=== PATIENT | male | born 1970 | race Caucasian/White ===

== ENCOUNTER 2018-05-30 14:44 | Emergency (ER) | payer OTHER, SELFPAY ==
[2018-05-30 14:48] VITALS: BP 155/81; PULSE 73; RESP 16; TEMP 36.6; O2SAT 98; BMI 29.9
--- NOTE | 2018-05-30 15:01 | ED.BACK ---
HPI - Back Pain/Injury <Macy Cui PA-C - Last Filed: 05/30/18 20:01> General Chief Complaint: Back Pain/Injury Stated Complaint: Kidney Stones Time Seen by Provider: 05/30/18 15:01 Source: patient Mode of arrival: ambulatory Limitations: no limitations History of Present Illness HPI Narrative: This 48-year-old male comes to the ED today due to right flank area pain which feels similar to his previous kidney stones. He states that he has had those a couple of times years ago. He states this pain came on yesterday morning, early. He describes it as episodic, yesterday more in the middle of his back radiating to the groin, today more in the right flank and can radiate around a bit to the abdomen. He was seen at an ED in [place] yesterday and states that ultrasound was done, no stone found lodged in the ureter and he felt better after Toradol also discharged, however pain became worse again this morning, waxing and waning, along with vomiting 3 or 4 times today. He states he really does not have significant nausea. He denies any abdominal pain elsewhere. He denies any fever or recent illness. He denies any urinary symptoms such as dysuria or hematuria. He is not having chest pain, dyspnea, or other new complaints on systems review. Related Data Previous Rx's Medication Instructions Recorded ondansetron [Zofran ODT] 4 mg PO Q6-8H PRN #7 tab 05/30/18 tamsulosin [Flomax] 0.4 mg PO .hs #5 cap 05/30/18 Allergies Allergy/AdvReac Type Severity Reaction Status Date / Time No Known Drug Allergies Allergy Verified 05/30/18 15:29 Review of Systems <Macy Cui PA-C - Last Filed: 05/30/18 20:01> Review of Systems All systems reviewed & are unremarkable except as noted in HPI and below Exam <Macy Cui PA-C - Last Filed: 05/30/18 20:01> Narrative Exam Narrative: GENERAL APPEARANCE: Patient appears mildly uncomfortable, seated, in no distress. HEENT: PERRL, EOMI, no scleral icterus NECK: Supple LUNGS: Clear to auscultation bilaterally. HEART: Rate and rhythm regular, normal S1 and S2, no S3 or S4. ABDOMEN: Soft, nondistended, bowel sounds present x 4 quadrants, no masses palpable, no hepatosplenomegaly. Moderate right flank tenderness, no tenderness elsewhere over the abdomen EXTREMITIES: No edema, no cyanosis DERMATOLOGIC: No jaundice or exanthem NEUROLOGIC: Alert and oriented with normal speech and coordination Initial Vital Signs Initial Vital Signs: Vital Signs Temperature 97.8 F 05/30/18 14:48 Pulse Rate 73 05/30/18 14:48 Respiratory Rate 16 05/30/18 14:48 Blood Pressure 155/81 H 05/30/18 14:48 Pulse Oximetry 98 05/30/18 14:48 <John Kirk DO - Last Filed: 05/30/18 20:02> Initial Vital Signs Initial Vital Signs: Vital Signs Temperature 97.8 F 05/30/18 14:48 Pulse Rate 73 05/30/18 14:48 Respiratory Rate 16 05/30/18 14:48 Blood Pressure 155/81 H 05/30/18 14:48 Pulse Oximetry 98 05/30/18 14:48 Course <Macy Cui PA-C - Last Filed: 05/30/18 20:01> Additional Information: Patient is feeling significantly improved at the time of discharge. He does not appear to have infection. He is urinating normally. He will continue anti-inflammatory and also has some left over [place] at home to take if needed. I also prescribed Zofran and Flomax for him. He agreed to return if any acutely worsening symptoms again, otherwise agreed to follow up with PCP in the next day or 2. Advised urology referral would be needed if not improving Orders Ordered: ED Orders 05/30/18 14:58 Comprehensive Metabolic Panel Stat Lipase Stat 05/30/18 15:26 CT kidney ureter bladder (KUB) Stat 05/30/18 16:12 Urinalysis and Microscopic Stat Discontinued Medications Ketorolac Tromethamine (Toradol) 30 mg IV NOW ONE Stop: 05/30/18 15:27 Last Admin: 05/30/18 15:29 Dose: 30 mg Ondansetron HCl (Zofran) 4 mg IV NOW ONE Stop: 05/30/18 15:27 Last Admin: 05/30/18 15:29 Dose: 4 mg Vital Signs - 8 hr 05/30/18 14:48 05/30/18 16:58 Temperature 97.8 F Pulse Rate 73 62 Respiratory Rate 16 12 Blood Pressure 155/81 H Blood Pressure [Left Arm] 127/85 H Pulse Oximetry 98 98 <John Kirk DO - Last Filed: 05/30/18 20:02> Orders Ordered: ED Orders 05/30/18 14:58 Comprehensive Metabolic Panel Stat Lipase Stat 05/30/18 15:26 CT kidney ureter bladder (KUB) Stat 05/30/18 16:12 Urinalysis and Microscopic Stat Discontinued Medications Ketorolac Tromethamine (Toradol) 30 mg IV NOW ONE Stop: 05/30/18 15:27 Last Admin: 05/30/18 15:29 Dose: 30 mg Ondansetron HCl (Zofran) 4 mg IV NOW ONE Stop: 05/30/18 15:27 Last Admin: 05/30/18 15:29 Dose: 4 mg Vital Signs - 8 hr 05/30/18 14:48 05/30/18 16:58 Temperature 97.8 F Pulse Rate 73 62 Respiratory Rate 16 12 Blood Pressure 155/81 H Blood Pressure [Left Arm] 127/85 H Pulse Oximetry 98 98 MDM - Back Pain/Injury <Macy Cui PA-C - Last Filed: 05/30/18 20:01> Lab Data Result diagrams: 05/30/18 14:58 Lab Results 05/30/18 05/30/18 Range/Units 14:58 16:12 Sodium 141 (137-145) mmol/L Potassium 4.7 (3.4-5.1) mmol/L Chloride 101 (98-107) mmol/L Carbon Dioxide 31 (22-32) mmol/L BUN 20 (9-20) mg/dL Creatinine 1.40 H (0.66-1.25) mg/dL Estimated GFR 54.1 L (>60) mL/min BUN/Creatinine Ratio 14.3 (6-22) Glucose 104 H (70-100) mg/dL Calcium 9.6 (8.4-10.2) mg/dL Total Bilirubin 1.1 (0.2-1.3) mg/dL AST 39 (17-59) IU/L ALT 37 (21-72) IU/L Alkaline Phosphatase 46 (38-126) U/L Total Protein 7.6 (6.3-8.2) g/dL Albumin 4.6 (3.5-5.0) g/dL Globulin 3.0 (1.7-4.1) g/dL Albumin/Globulin Ratio 1.5 (1.0-2.8) Lipase 83 (23-300) U/L Urine Color Yellow Urine Appearance Clear Urine pH 5.5 (4.5-8.0) Ur Specific Mouthcard 1.010 (1.000-1.035) Urine Protein Negative (Negative) Urine Glucose (UA) Negative (Normal) g/dL Urine Ketones 1+ H (NEGATIVE) Urine Occult Blood 3+ H (Negative) Urine Nitrate Negative (Negative) Urine Bilirubin Negative (NEGATIVE) Urine Urobilinogen 0.2 (0.2) E.U./dL Ur Leukocyte Esterase Negative (NEGATIVE) Urine RBC 5-10/hpf H (0-5/HPF) Urine WBC 0-1/hpf (0-5/HPF) Ur Squamous Epith Cells None seen Urine Bacteria None seen (None) Ur Culture Indicated? Cult not indicated Micro UA Comment Not Reportable Imaging Data CT scan - abdomen: Radiologist's impression: [place] [address] CT Scan Report Signed Patient: renae branch MR#: [id number] : 1970 Acct:[id number] Age/Sex: 48 / M Date of Service: 05/30/18 Loc: ED Accession Number: [id number] Procedure: CT kidney ureter bladder (KUB) Ordering Provider: Macy Cui P.A-C PROCEDURE: CT KIDNEY URETER BLADDER (KUB) INDICATIONS: Right flank pain, stone. TECHNIQUE: Noncontrast 5 mm thick sections acquired from the diaphragms to the symphysis. 5 mm thick coronal and sagittal reformats were then performed. For radiation dose reduction, the following was used: automated exposure control, adjustment of mA and/or kV according to patient size. COMPARISON: None. FINDINGS: Image quality: Excellent. Lung bases: Lung bases are clear. Heart size is normal. Urinary system: Both kidneys are normal in size. Punctate nonobstructing left superior pole renal calcification is present. Nonobstructing linear 3 mm calcification is noted within the inferior pole. The right kidney demonstrates perinephric stranding. There is a minimal appearance of hydronephrosis and proximal hydroureter. 2 mm calcification is noted within the proximal left ureter. The bladder wall is diffusely thickened as well as incompletely distended. Other solid organs: Liver is normal in size. Gallbladder is unremarkable. Pancreas is normal in contours. Spleen is normal in size. No adrenal nodules. Peritoneum and bowel: Unenhanced bowel loops demonstrate normal wall thickness and caliber. No free fluid or air. Nodes and vessels: No retroperitoneal or mesenteric adenopathy by size criteria. Aorta and inferior vena cava are normal in caliber. Abdominal wall: No ventral hernias. Pelvis: No free pelvic fluid. No inguinal hernias or adenopathy. Bones: No suspicious bony lesions. No vertebral body compression fractures. IMPRESSION: 1. Minimal right hydronephrosis and hydroureter with 2 mm calcification in the proximal right ureter. Right perinephric and periureteral stranding are noted. 2. Diffusely thickened bladder wall. This could be secondary to incomplete distention. However, a similar appearance can be seen with cystitis and clinical correlation is recommended. Dictated by: Tamara Montgomery M.D. on 05/30/2018 at 16:01 Approved by: Tamara Montgomery M.D. on 05/30/2018 at 16:05 <John Kirk DO - Last Filed: 05/30/18 20:02> Lab Data Lab Results 05/30/18 05/30/18 Range/Units 14:58 16:12 Sodium 141 (137-145) mmol/L Potassium 4.7 (3.4-5.1) mmol/L Chloride 101 (98-107) mmol/L Carbon Dioxide 31 (22-32) mmol/L BUN 20 (9-20) mg/dL Creatinine 1.40 H (0.66-1.25) mg/dL Estimated GFR 54.1 L (>60) mL/min BUN/Creatinine Ratio 14.3 (6-22) Glucose 104 H (70-100) mg/dL Calcium 9.6 (8.4-10.2) mg/dL Total Bilirubin 1.1 (0.2-1.3) mg/dL AST 39 (17-59) IU/L ALT 37 (21-72) IU/L Alkaline Phosphatase 46 (38-126) U/L Total Protein 7.6 (6.3-8.2) g/dL Albumin 4.6 (3.5-5.0) g/dL Globulin 3.0 (1.7-4.1) g/dL Albumin/Globulin Ratio 1.5 (1.0-2.8) Lipase 83 (23-300) U/L Urine Color Yellow Urine Appearance Clear Urine pH 5.5 (4.5-8.0) Ur Specific [place] 1.010 (1.000-1.035) Urine Protein Negative (Negative) Urine Glucose (UA) Negative (Normal) g/dL Urine Ketones 1+ H (NEGATIVE) Urine Occult Blood 3+ H (Negative) Urine Nitrate Negative (Negative) Urine Bilirubin Negative (NEGATIVE) Urine Urobilinogen 0.2 (0.2) E.U./dL Ur Leukocyte Esterase Negative (NEGATIVE) Urine RBC 5-10/hpf H (0-5/HPF) Urine WBC 0-1/hpf (0-5/HPF) Ur Squamous Epith Cells None seen Urine Bacteria None seen (None) Ur Culture Indicated? Cult not indicated Micro UA Comment Not Reportable Discharge Plan Departure Patient Disposition: Home, Self-Care Clinical Impression: Kidney stone on right side Discharge Date/Time: 05/30/18 17:21 Interventions: ED Discharge Assessment Last Done: 05/30/18 17:20 Instructions: DI for Kidney Stones Activity Restrictions/Additional Instructions: Please return as we talked about if you have acutely worsening symptoms. Otherwise, you can take the nausea medicine as needed. You can take your ibuprofen 600-800 mg every 8 hr. You can add your left over Vicodin that you already have at home as needed but do not take that and drive as it may make you sleepy. I have also sent a prescription for Flomax that you can take at bedtime which may help the kidney stone passed. This stone is small but there is inflammation around your kidney, so please see your PCP in the next day or 2 to make sure you are getting better, otherwise you need a referral to urologist. Prescriptions: New tamsulosin [Flomax] 0.4 mg capsule,extended release 24hr 0.4 mg PO .hs Qty: 5 RF: 0 ondansetron [Zofran ODT] 4 mg tablet,disintegrating 4 mg PO Q6-8H PRN (Reason: nausea and vomiting) Qty: 7 RF: 0 Referrals: Lazara Hong ND [Non-Staff] - <John Lanker, DO - Last Filed: 05/30/18 20:02> Cosign ED Attending Tayature Attestation: I was available for consultation during this patient's emergency department encounter
--- NOTE | 2018-05-30 15:26 | DI.CT.S_ITS ---
PROCEDURE: CT KIDNEY URETER BLADDER (KUB) INDICATIONS: Right flank pain, stone. TECHNIQUE: Noncontrast 5 mm thick sections acquired from the diaphragms to the symphysis. 5 mm thick coronal and sagittal reformats were then performed. For radiation dose reduction, the following was used: automated exposure control, adjustment of mA and/or kV according to patient size. COMPARISON: None. FINDINGS: Image quality: Excellent. Lung bases: Lung bases are clear. Heart size is normal. Urinary system: Both kidneys are normal in size. Punctate nonobstructing left superior pole renal calcification is present. Nonobstructing linear 3 mm calcification is noted within the inferior pole. The right kidney demonstrates perinephric stranding. There is a minimal appearance of hydronephrosis and proximal hydroureter. 2 mm calcification is noted within the proximal left ureter. The bladder wall is diffusely thickened as well as incompletely distended. Other solid organs: Liver is normal in size. Gallbladder is unremarkable. Pancreas is normal in contours. Spleen is normal in size. No adrenal nodules. Peritoneum and bowel: Unenhanced bowel loops demonstrate normal wall thickness and caliber. No free fluid or air. Nodes and vessels: No retroperitoneal or mesenteric adenopathy by size criteria. Aorta and inferior vena cava are normal in caliber. Abdominal wall: No ventral hernias. Pelvis: No free pelvic fluid. No inguinal hernias or adenopathy. Bones: No suspicious bony lesions. No vertebral body compression fractures. IMPRESSION: 1. Minimal right hydronephrosis and hydroureter with 2 mm calcification in the proximal right ureter. Right perinephric and periureteral stranding are noted. 2. Diffusely thickened bladder wall. This could be secondary to incomplete distention. However, a similar appearance can be seen with cystitis and clinical correlation is recommended. Dictated by: Tamara Montgomery M.D. on 05/30/2018 at 16:01 Approved by: Tamara Montgomery M.D. on 05/30/2018 at 16:05
[2018-05-30] MEDS: KETOROLAC 60 MG/2 ML VIAL 30 MG IV (15:29)
[2018-05-30] MEDS: ONDANSETRON 4 MG/2 ML INJ IV (15:29)
[2018-05-30 15:50] LABS: Alanine Aminotransferase 37 IU/L (21-72); Albumin 4.6 g/dL (3.5-5.0); Albumin Globulin Ratio 1.5 (1.0-2.8); Alkaline Phosphatase 46 U/L (38-126); Aspartate Aminotransferase 39 IU/L (17-59); BUN Creatinine Ratio 14.3 (6-22); Bilirubin Total 1.1 mg/dL (0.2-1.3); Blood Urea Nitrogen 20 mg/dL (9-20); Calcium 9.6 mg/dL (8.4-10.2); Carbon Dioxide 31 mmol/L (22-32); Chloride 101 mmol/L (98-107); Estimated Glomerular Filt Rate 54.1 mL/min (>60); Glucose 104 mg/dL (70-100); Lipase 83 U/L (23-300); Sodium 141 mmol/L (137-145); Total Protein 7.6 g/dL (6.3-8.2)
[2018-05-30 15:57] LABS: HEMOLYSIS 71 (0-50)
[2018-05-30 15:58] LABS: Potassium 4.7 mmol/L (3.4-5.1)
[2018-05-30 16:14] LABS: Bacteria Urine None Seen
[2018-05-30 16:18] LABS: Appearance Urine UA CLEAR; Bilirubin Urine UA NEGATIVE (NEGATIVE); Color Urine UA YELLOW; Glucose Urine UA NEGATIVE (Normal); Ketones Urine UA 1+ (NEGATIVE); Leukocyte Esterase Urine UA NEGATIVE (NEGATIVE); Nitrite Urine UA Negative (Negative); Occult Blood Urine UA 3+ (Negative); Protein Urine UA NEGATIVE (Negative); Urobilinogen Urine UA 0.2 E.U./dL (0.2); pH Urine UA 5.5 (4.5-8.0)
[2018-05-30 16:32] LABS: Culture Indicated Urine Cult Not Indicated; RBC Urine 5-10/HPF (0-5/HPF); Squamous Epithelial Cell Urine None Seen; WBC Urine 0-1/HPF (0-5/HPF)
[2018-05-30 16:58] VITALS: BP 127/85; PULSE 62; RESP 12; O2SAT 98
== END 2018-05-30 17:21 | disposition home or self-care (01) ==
PROVIDERS: Emergency Provider Internal Medicine
DX: N20.0 Calculus of kidney (principal)
CPT/HCPCS: 36591; 74176; 80053; 81001; 83690; 96374; 96375; 99282; 99284; J1885; J2405

== ENCOUNTER → 2018-05-31 17:08 | Outpatient (CLI) | payer OTHER, SELFPAY ==
[2018-05-31 17:17] LABS: RBC Urine None Seen (0-5/HPF); WBC Urine None Seen (0-5/HPF)
[2018-05-31 18:16] LABS: Appearance Urine UA CLEAR; Bilirubin Urine UA NEGATIVE (NEGATIVE); Color Urine UA YELLOW; Glucose Urine UA NEGATIVE (Normal); Ketones Urine UA NEGATIVE (NEGATIVE); Leukocyte Esterase Urine UA NEGATIVE (NEGATIVE); Nitrite Urine UA Negative (Negative); Occult Blood Urine UA TRACE-INTACT (Negative); Protein Urine UA NEGATIVE (Negative); Specific Gravity Urine UA <=1.005 (1.000-1.035); Urobilinogen Urine UA 0.2 E.U./dL (0.2); pH Urine UA 5.5 (4.5-8.0)
[2018-05-31 18:20] LABS: Bacteria Urine Occasional (0-1)
== END ==
PROVIDERS: Visit Provider Naturopath
DX: N20.0 Calculus of kidney (principal)
CPT/HCPCS: 81001; 87086

== ENCOUNTER → 2019-06-15 15:47 | Outpatient (CLI) | payer OTHER, SELFPAY ==
--- NOTE | 2019-06-15 | DI.US.S_ITS ---
PROCEDURE: US ABDOMEN COMPLETE INDICATIONS: Left lower quadrant pain TECHNIQUE: Real-time scanning was performed of the abdominal and retroperitoneal organs, with image documentation. COMPARISON: None. FINDINGS: Liver: Liver is normal in size and homogeneous in echotexture, diffusely hyperechoic consistent with fatty infiltration. Gallbladder: The gallbladder appears normal. Biliary ducts: Intrahepatic bile ducts are non-dilated. Extrahepatic bile duct caliber measures 6.2 mm. Normal is 6-7 mm or less in diameter, or 10 mm or less post-cholecystectomy. Pancreas: Visualized portions of the pancreas are sonographically normal. Spleen: Spleen is normal in size and homogeneous in echotexture. Kidneys: Kidneys are normal in size and echotexture. Right kidney measures 10.5 cm long; left kidney measures 11.0 cm long. No hydronephrosis or nephrolithiasis. No solid masses. Aorta: Visualized aorta is normal in caliber at less than 3 cm. Iliacs: Proximal common iliac arteries are normal in caliber at less than 2.5 cm. IVC: Intrahepatic inferior vena cava is patent. Miscellaneous: No free abdominal fluid. IMPRESSION: A source of current pain in the left lower quadrant is not identified. Depending on the clinical status followup by contrast-enhanced CT scanning may be warranted. Please note that sonographic assessment for presence or absence of diverticulitis or malignancy is very limited in quality within the pelvis due to overlying bowel gas. Dictated by: Chris Mendez M.D. on 06/15/2019 at 16:48 Approved by: Chris Mendez M.D. on 06/15/2019 at 16:49
== END ==
PROVIDERS: Visit Provider Naturopath
DX: R10.32 Left lower quadrant pain (principal)
CPT/HCPCS: 76700

== ENCOUNTER → 2019-09-27 17:01 | Outpatient (CLI) | payer OTHER, SELFPAY ==
--- NOTE | 2019-09-27 | DI.RAD.S_ITS ---
PROCEDURE: XR CHEST 2V INDICATIONS: wheezing TECHNIQUE: 2 views of the chest were acquired. COMPARISON: [facility], CT, CT KIDNEY URETER BLADDER (KUB), 05/30/2018, 15:36. FINDINGS: Surgical changes and devices: None. Lungs and pleura: There is a 4 mm linear radiopaque density projecting over the left upper lobe/left sixth rib on PA view, without convincing correlate on lateral view. Lungs are otherwise clear. No pleural effusions or pneumothorax. Mediastinum: Mediastinal contours are normal. Heart size is normal. Bones and chest wall: No suspicious bony abnormalities. Soft tissues appear unremarkable. IMPRESSION: 1. 4 mm linear radiopaque density projecting over the left upper lobe/left sixth rib on PA view, without convincing correlate on lateral view. This may represent a soft tissue calcification or radiopaque foreign body external to the patient, a rib enostosis, or a pulmonary calcification. Consider followup imaging if there is continued clinical concern. 2. No focal pulmonary consolidations consistent with pneumonia. Dictated by: Rafael Byers M.D. on 09/28/2019 at 12:10 Approved by: Rafael Byers M.D. on 09/28/2019 at 13:01
== END ==
PROVIDERS: Visit Provider Naturopath
DX: R06.2 Wheezing (principal)
CPT/HCPCS: 71046

== ENCOUNTER → 2020-12-20 08:01 | Outpatient (CLI) | payer OTHER, SELFPAY ==
[2020-12-20 08:21] LABS: Bacteria Urine None Seen; RBC Urine None Seen (0-5/HPF)
[2020-12-20 09:01] LABS: Appearance Urine UA CLEAR; Bilirubin Urine UA NEGATIVE (NEGATIVE); Color Urine UA YELLOW; Glucose Urine UA NEGATIVE (Negative); Ketones Urine UA NEGATIVE (NEGATIVE); Leukocyte Esterase Urine UA NEGATIVE (NEGATIVE); Nitrite Urine UA NEGATIVE (Negative); Occult Blood Urine UA NEGATIVE (Negative); Protein Urine UA NEGATIVE (Negative); Urobilinogen Urine UA 0.2 E.U./dL (0.2); pH Urine UA 6.5 (4.5-8.0)
[2020-12-20 09:01] LABS: Add Manual Diff / Slide Review NO; Basophils Absolute Auto 100 /uL (0-100); Eosinophils Absolute Auto 100 /uL (0-450); Eosinophils Percent Auto 2.2 % (2-4); Hemoglobin 14.8 g/dL (13.5-17.5); Lymphocytes Absolute Auto 2500 /uL (1100-4500); Lymphocytes Percent Auto 40.5 % (25-40); Mean Corpuscular HGB Conc 33.5 % (30-36); Mean Corpuscular Hemoglobin 30.2 PG (26-34); Monocytes Absolute Auto 500 /uL (0-900); Monocytes Percent Auto 8.1 % (3-14); Neutrophils Absolute Auto 3000 /uL (1500-7000); Neutrophils Percent Auto 48.2 % (50-75); Platelet Count 227 X10^3/uL (150-400); Red Blood Cell Count 4.89 X10^6/uL (4.5-5.9); Red Cell Distribution Width 13.7 % (11.6-14.8); White Blood Cell Count 6.1 X10^3/uL (4.5-11.0)
[2020-12-20 09:07] LABS: Alanine Aminotransferase 34 IU/L (<50); Albumin 4.3 g/dL (3.5-5.0); Albumin Globulin Ratio 1.5 (1.0-2.8); Alkaline Phosphatase 48 U/L (38-126); Aspartate Aminotransferase 26 IU/L (17-59); BUN Creatinine Ratio 24.1 (6-22); Bilirubin Total 0.4 mg/dL (0.2-1.3); Blood Urea Nitrogen 19 mg/dL (9-20); Calcium 9.2 mg/dL (8.4-10.2); Carbon Dioxide 31 mmol/L (22-32); Chloride 103 mmol/L (98-107); Cholesterol 263 mg/dL (140-199); Estimated Glomerular Filt Rate > 60.0 mL/min (>60); Gamma Glutamyl Transpeptidase 31 U/L (15-73); Globulin 2.8 g/dL (1.7-4.1); Glucose 107 mg/dL (70-100); HDL Cholesterol 40 mg/dL (40-60); HEMOLYSIS < 15 (0-50); LDL Cholesterol Calculated 199 mg/dL (<100); Potassium 4.5 mmol/L (3.4-5.1); Sodium 138 mmol/L (137-145); Total Protein 7.1 g/dL (6.3-8.2); Triglycerides 120 mg/dL (35-150); Uric Acid 5.2 mg/dL (3.5-8.5)
[2020-12-20 09:09] LABS: Hemoglobin A1C% w Est Avg Glu 5.8 % (4.0-6.0)
[2020-12-20 09:15] LABS: High Sensitivity CRP - Cardiac 2.4 mg/L (1.0-3.0)
[2020-12-20 09:29] LABS: Free T3, Triiodothyronine Free 4.03 pg/mL (2.77-5.27)
[2020-12-20 09:34] LABS: WBC Urine 0-1/HPF (0-5/HPF)
[2020-12-20 09:35] LABS: Culture Indicated Urine Cult Not Indicated
[2020-12-20 09:41] LABS: Thyroid Stimulating Hormone 1.17 uIU/mL (0.47-4.68)
== END ==
PROVIDERS: Referring Provider Naturopath; Visit Provider Naturopath
DX: R73.9 Hyperglycemia, unspecified (principal); E78.00 Pure hypercholesterolemia, unspecified; Z87.442 Personal history of urinary calculi
CPT/HCPCS: 36415; 80053; 80061; 81001; 82977; 83036; 83090; 84153; 84154; 84439; 84443; 84481; 84550; 85025; 86140

== ENCOUNTER → 2021-02-21 08:03 | Outpatient (CLI) | payer OTHER, SELFPAY ==
[2021-02-21 09:14] LABS: Amylase 86 U/L (30-110); Lipase 120 U/L (23-300)
== END ==
PROVIDERS: PCP Naturopath; Referring Provider Naturopath; Visit Provider Naturopath
DX: K90.41 Non-celiac gluten sensitivity (principal)
CPT/HCPCS: 36415; 82150; 83690; 87086